=== PATIENT | female | born 1940 | race Caucasian/White ===

== ENCOUNTER 2016-07-05 16:57 | Emergency (ER) | payer OTHER ==
[~2016-07-05] VITALS: Ht 154.9 cm; Wt 79.0 kg
[~2016-07-05 16:57] MED LIST: ALLO1TAB51 PO; AMT10 PO; ASPI-435 PO; DICL1GEL28 TOP; DONE5TAB14 PO; GLC/500 PO; LSN25 PO; Lovaza PO; MULT-506 PO; NITR0.4S UT; PRLSR20 PO; SIMV40TA2 PO; SYN75 PO; TIMO0.2527 IO; TRVOPS OP
[2016-07-05 17:05] VITALS: TEMP 36.8; Ht 154.9 cm; Wt 79.0 kg
--- NOTE | 2016-07-05 17:33 | EMERGENCY ROOM VISIT NOTE ---
History Report prepared by Eugene: Solo Adkins Under the Supervision of: Dr. Cedric Alavrado M.D. First contact with patient: 17:14 Chief Complaint: FALL Stated Complaint: FALL / KNEE & NECK PAIN History of Present Illness The patient is a 76 year old female who presents to the Emergency Room via ambulance with complaints of worsening left sided neck pain due to a fall beginning 3-4 days prior to arrival. She currently rates her discomfort as an 8/ 10 in severity. The patient associates left knee pain with today's symptoms. She states she was walking her dog, and the dog started running while she was holding onto the leash. The patient notes she fell on her left knee, and her neck "snapped back" during her fall. She states she hit her head but denies losing consciousness. As per family, the patient has had previous work performed on the vertebrae of her neck and back. The patient denies back pain, abdominal pain, and hip pain. 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 Review of Systems All systems have been listed, reviewed, and are negative other than those previously mentioned. Please see Additional Medical History Sheet. Past Medical & Surgical Medical Problems: (1) Arthritis (2) Borderline glaucoma (3) Diabetes (4) GERD (gastroesophageal reflux disease) (5) Hypercholesterolemia (6) Hypertension (7) Hypothyroidism (8) Irregular heartbeat Surgical Problems: (1) S/P cervical discectomy (2) S/P cholecystectomy (3) S/P hysterectomy (4) S/P laminectomy Family History Heart disease Social History Smoking Status: Never Smoker Marital Status: Occupation Status: retired Current/Historical Medications Scheduled Allopurinol (Allopurinol), 100 MG PO DAILY Atorvastatin (Lipitor), 40 MG PO HS Donepezil Hydrochloride (Aricept), 10 MG PO HS Levothyroxine Sodium (Synthroid), 75 MCG PO QAM Lisinopril (Lisinopril), 2.5 MG PO 3XWK Memantine (Namenda), 10 MG PO BID Metformin HCl (Metformin HCl ER), 1,000 MG PO QPM Multivitamin (Multivitamin), 1 TAB PO DAILY Nitroglycerin (Nitrostat), 0.4 MG UT PRN Omeprazole (Prilosec), 1 CAP PO DAILY Sertraline (Zoloft), 25 MG PO DAILY Timolol Maleate (Ophth) (Timoptic 0.25% Oph), 1 DROP OPB QAM Scheduled PRN Ibuprofen Tab (Motrin), 600 MG PO Q6H PRN for Pain Allergies Coded Allergies: Morphine (Verified Allergy, Unknown, 07/05/16) Physical Exam Vital Signs Date Time Temp Pulse Resp B/P Pulse Ox O2 Delivery O2 Flow Rate FiO2 07/05/16 19:49 60 20 165/104 97 07/05/16 17:05 36.8 56 16 144/80 96 Room Air Physical Exam GENERAL: Patient awake, alert, oriented x 3. Patient follows commands. Patient does not appear toxic. Patient is adequately hydrated and well- nourished. SKIN: No erythema, pallor, cyanosis or rash HEENT: Normal head, pupils equal, reactive to light and accommodation. Neck: Patient has some vague left sided neck pain. Minimal to no tenderness over the spine. No step-offs palpated. LUNGS: Clear to auscultation. No wheezes, no rales, no rhonchi. HEART: No murmurs. No gallops. No rubs ABDOMEN: Soft, nontender. PELVIS: Negative to pelvic rock. Hips nontender to movement. EXTREMITIES: Left knee has slight tenderness with flexion. No break in the skin. No ecchymosis. NEUROLOGIC: Cranial nerves II-XII within normal limits. No gross motor sensory function deficits. Medical Decision & Procedures ER Provider Diagnostic Interpretation: X-ray results as stated below per my interpretation and radiologist interpretation. Other radiology results as stated below per my review and radiologist interpretation: LEFT KNEE 1 OR 2 VIEWS ROUTINE CLINICAL HISTORY: Left knee pain status post trauma COMPARISON: None DISCUSSION: No acute fractures of the tibia or femur are visualized. There are osteoarthritic changes present. There is mild irregularity involving the superior patellar pole, likely chronic. Please correlate with the patient's site of pain. IMPRESSION: 1. Mild degenerative change 2. Mild irregularity the superior patellar pole, likely chronic. Please correlate with the patient's site of pain Electronically signed by: Ady Buchanan M.D. 07/05/2016 6:[address] OF THE CERVICAL SPINE CLINICAL HISTORY: Neck pain status post trauma COMPARISON STUDY: No previous studies for comparison. CT DOSE: 218.12 mGy.cm TECHNIQUE: CT scan of the cervical spine was performed from the skull base to the thoracic inlet. Images are reviewed in the axial, sagittal, and coronal planes. IV contrast was not administered for this examination. FINDINGS: The visualized portions of the lung apices reveal no evidence of pneumothorax. The prevertebral soft tissues are normal. No fractures or traumatic subluxations are visualized. There are multilevel degenerative changes. There is C6-7 fusion. Minimal anterior subluxation of C3 on C4 is felt to be arthritic. There is a 5 mm sclerotic lesion within the C3 vertebra. IMPRESSION: 1. No acute fractures or traumatic subluxations identified 2. Degenerative and postsurgical changes Electronically signed by: Ady Buchanan M.D. 07/05/2016 5:58 PM Medications Administered Medications (Trade) Dose Ordered Sig/Tony Route Start Time Stop Time Status Last Admin Dose Admin Ibuprofen (Motrin Tab) 600 mg NOW STAT PO 07/05/16 19:07 07/05/16 19:08 DC 07/05/16 19:45 600 MG ED Course 171: Past medical records reviewed. The patient was evaluated in room A4A. A complete history and physical examination was performed. 1906: Ordered Motrin Tab 600 mg PO. 1909: Upon reevaluation, the patient appeared to have improvement of her symptoms. I discussed today's findings with her. She verbalized agreement of the treatment plan. The patient was discharged home. Medical Decision Nurses notes reviewed. Medical history sheet reviewed. Differential diagnosis includes but is not limited to: cervical spine injury, muscular strain, fracture , dislocation and subluxation of left knee, mechanical fall. X-ray of the left knee reveals questionable lucency of the distal patella. The patient does not have significant pain there and I believe this is old. CT of her cervical spine is negative for any acute fractures. The patient appears to have muscular pain on the left side of her neck. The patient be given a prescription for pain medication be taken as needed. She is to apply heat to the neck. Impression Primary Impression: Neck muscle strain Additional Impressions: Multiple contusions Fall Scribe Attestation The scribe's documentation has been prepared under my direction and personally reviewed by me in its entirety. I confirm that the note above accurately reflects all work, treatment, procedures, and medical decision making performed by me. Departure Information Dispostion Home / Self-Care (is in a home Motrin) Prescriptions Ibuprofen Tab (MOTRIN) 600 Mg Tab 600 MG PO Q6H Y for Pain, #20 TAB Prov: Cedric Alvaardo M.D. 07/05/16 Referrals Clara Garcia M.D. (PCP) Forms HOME CARE DOCUMENTATION FORM, IMPORTANT VISIT INFORMATION Patient Instructions My [facility] Additional Instructions 600 mg of ibuprofen every 6 hours as needed for pain. Apply heat intermittently to the left side of your neck over the next 3-4 days. Follow-up with your family physician within the next 10 days if symptoms have not completely resolved. Problem Qualifiers
[2016-07-05] MEDS ORDERED: LEVO25TA PO (17:44)
[2016-07-05] MEDS ORDERED: SERT25TA PO (17:44)
[2016-07-05] MEDS ORDERED: ALL100 PO (17:44)
[2016-07-05] MEDS ORDERED: ATOR-54 PO (17:44)
[2016-07-05] MEDS ORDERED: LSN5 PO (17:44)
[2016-07-05] MEDS ORDERED: PRLSR20 PO (17:44)
[2016-07-05] MEDS ORDERED: MULT-506 PO (17:45)
[2016-07-05] MEDS ORDERED: LEVO75TA PO (17:51)
[2016-07-05] MEDS ORDERED: LSN25 PO (17:51)
[2016-07-05] MEDS ORDERED: NMN10 PO (17:51)
[2016-07-05] MEDS ORDERED: TIMO0.05 OPB (17:51)
[2016-07-05] MEDS ORDERED: ATOR-24 PO (17:51)
[2016-07-05] MEDS ORDERED: DONE10TA12 PO (17:51)
[2016-07-05] MEDS ORDERED: METF-841 PO (17:51)
--- NOTE | 2016-07-05 17:59 | DIAGNOSTIC IMAGING REPORT ---
CT OF THE CERVICAL SPINE CLINICAL HISTORY: Neck pain status post trauma COMPARISON STUDY: No previous studies for comparison. CT DOSE: 218.12 mGy.cm TECHNIQUE: CT scan of the cervical spine was performed from the skull base to the thoracic inlet. Images are reviewed in the axial, sagittal, and coronal planes. IV contrast was not administered for this examination. FINDINGS: The visualized portions of the lung apices reveal no evidence of pneumothorax. The prevertebral soft tissues are normal. No fractures or traumatic subluxations are visualized. There are multilevel degenerative changes. There is C6-7 fusion. Minimal anterior subluxation of C3 on C4 is felt to be arthritic. There is a 5 mm sclerotic lesion within the C3 vertebra. IMPRESSION: 1. No acute fractures or traumatic subluxations identified 2. Degenerative and postsurgical changes Electronically signed by: Ady Buchanan M.D. 07/05/2016 5:58 PM Dictated Date/Time: 07/05/2016 5:55 PM
--- NOTE | 2016-07-05 18:43 | DIAGNOSTIC IMAGING REPORT ---
LEFT KNEE 1 OR 2 VIEWS ROUTINE CLINICAL HISTORY: Left knee pain status post trauma COMPARISON: None DISCUSSION: No acute fractures of the tibia or femur are visualized. There are osteoarthritic changes present. There is mild irregularity involving the superior patellar pole, likely chronic. Please correlate with the patient's site of pain. IMPRESSION: 1. Mild degenerative change 2. Mild irregularity the superior patellar pole, likely chronic. Please correlate with the patient's site of pain Electronically signed by: Ady Buchanan M.D. 07/05/2016 6:42 PM Dictated Date/Time: 07/05/2016 6:40 PM
[2016-07-05] MEDS ORDERED: IBUP-1427 PO (19:06)
[2016-07-05] MEDS ORDERED: IBUPROFEN 600 MG TAB PO STA (19:07)
[2016-07-05 19:49] VITALS: BP 165/104; PULSE 60; O2SAT 97
[2016-09-06] MEDS ORDERED: SUCR1TAB29 PO (15:26)
== END 2016-07-05 19:51 | disposition home or self-care (01) ==
LOC: EDBD 16:57 → C.EDA 17:01
DX: S16.1XXA Strain of muscle, fascia and tendon at neck level, initial encounter (principal); T14.8 Other injury of unspecified body region; W19.XXXA Unspecified fall, initial encounter; Y93.K1 Activity, walking an animal; M19.90 Unspecified osteoarthritis, unspecified site; E11.9 Type 2 diabetes mellitus without complications; K21.9 Gastro-esophageal reflux disease without esophagitis; E78.00 Pure hypercholesterolemia, unspecified; I10 Essential (primary) hypertension; E03.9 Hypothyroidism, unspecified; Z79.899 Other long term (current) drug therapy

== ENCOUNTER 2016-09-05 19:17 | Observation (INO) | payer OTHER ==
[~2016-09-05] VITALS: Ht 153.7 cm; Wt 73.8 kg
[~2016-09-05 19:17] MED LIST changes: +ALL100 PO; -ALLO1TAB51 PO; -AMT10 PO; -ASPI-435 PO; +ATOR-24 PO; -DICL1GEL28 TOP; +DONE10TA12 PO; -DONE5TAB14 PO; -GLC/500 PO; +IBUP-1427 PO; +LEVO75TA PO; -Lovaza PO; +METF-841 PO; +NMN10 PO; +SERT25TA PO; -SIMV40TA2 PO; -SYN75 PO; +TIMO0.05 OPB; -TIMO0.2527 IO; -TRVOPS OP
[2016-09-05 19:58] LABS: HEMATOCRIT 37.7 % (37-47); MEAN CELL VOLUME 90.8 fL (80-100); MEAN CORPUSCULAR HEMOGLOBIN 29.9 pg (25-34); MEAN CORPUSCULAR HGB CONC 32.9 g/dl (32-36); PLATELET COUNT 152 K/uL (130-400); RED BLOOD COUNT 4.15 M/uL (4.2-5.4); WHITE BLOOD COUNT 6.33 K/uL (4.8-10.8)
[2016-09-05 20:09] LABS: BUN/CREATININE RATIO 13.7 (10-20); CREATININE 1.1 mg/dl (0.60-1.20); POTASSIUM 3.9 mmol/L (3.5-5.1)
[2016-09-05] MEDS ORDERED: CETI10TA84 PO (20:10)
[2016-09-05] MEDS ORDERED: TRAV0.00 OPB (20:10)
[2016-09-05] MEDS ORDERED: NMN5 PO (20:10)
--- NOTE | 2016-09-05 20:10 | DIAGNOSTIC IMAGING REPORT ---
CHEST ONE VIEW PORTABLE HISTORY: Atypical chest pain COMPARISON: Chest 04/23/2007. FINDINGS: No focal lung consolidations to suggest pneumonia. No evidence for pulmonary edema. The heart is normal in size. No pneumothorax. A few bibasilar linear densities favor scarring or atelectasis. This is not significantly change. No pleural effusions. IMPRESSION: No significant change compared to the prior study. No acute process. Electronically signed by: Bossman Peñaloza M.D. 09/05/2016 8:08 PM Dictated Date/Time: 09/05/2016 8:06 PM
[2016-09-05 20:14] LABS: ALB/GLOB RATIO 0.9 (0.9-2); CKMB/CK RATIO 1.1 (0-3.0)
--- NOTE | 2016-09-05 20:16 | EMERGENCY ROOM VISIT NOTE ---
History Report prepared by Eugene: Oscar Joshi Under the Supervision of: Dr. Jordy Ko M.D. First contact with patient: 20:06 Chief Complaint: CHEST PAIN Stated Complaint: CHEST PAIN Nursing Triage Summary: "chest pain 0700, midsternal thru to back, and left arm. hard pain" took regular meds at home, nothing for chest pain family reports pt pale, and dizziness, diaphoretic,. poor appetite, small bowl cereal for breakfast to take meds, nothing since. drank sips water only to take pills denies n/v/d, weakness. had normal bm this am went to acute care [facility] in [facility], was low grade fever was concerned for chest pain, gave her one aspirin and something under her tongue. pain was #8, now #6 History of Present Illness The patient is a 76 year old female who presents to the Emergency Room via EMS with complaints of persistent midsternal chest pain that started around 0700 this morning. This pain radiates to her back and left arm. Associated symptoms include nausea, low grade fever, shortness of breath, dizziness, decreased appetite, and diaphoresis. The patient states that this pain was originally an 8 /10 but is now 6/10 after Nitroglycerin, Fentanyl, and Aspirin en route. Patient denies abdominal pain, vomiting, diarrhea, and weakness. Source of History: patient Onset: 0700 this morning Symptom Intensity: 8/10 to 6/10 Timing: other (Persistent ) Modifying Factors (Worsening): other (None) Modifying Factors (Relieving): other (Fentanyl, nitro, and aspirin en route ) Associated Symptoms: + SOB, + diaphoresis, + nausea, No abdominal pain, No diarrhea, No vomiting Review of Systems See HPI for pertinent positives & negatives. A total of 10 systems reviewed and were otherwise negative. Past Medical & Surgical Medical Problems: (1) Arthritis (2) Borderline glaucoma (3) Chest pain (4) Diabetes (5) GERD (gastroesophageal reflux disease) (6) Hypercholesterolemia (7) Hypertension (8) Hypothyroidism (9) Irregular heartbeat Surgical Problems: (1) S/P cervical discectomy (2) S/P cholecystectomy (3) S/P hysterectomy (4) S/P laminectomy Family History Heart disease Social History Smoking Status: Never Smoker Drug Use: none Marital Status: Occupation Status: retired Current/Historical Medications Scheduled Allopurinol (Allopurinol), 100 MG PO DAILY Atorvastatin (Lipitor), 40 MG PO HS Cetirizine (Zyrtec), 10 MG PO HS Donepezil Hydrochloride (Aricept), 10 MG PO HS Levothyroxine Sodium (Synthroid), 75 MCG PO QAM Lisinopril (Lisinopril), 2.5 MG PO 3XWK Memantine (Namenda), 5 MG PO BID Multivitamin (Multivitamin), 1 TAB PO DAILY Nitroglycerin (Nitrostat), 0.4 MG UT PRN Omeprazole (Prilosec), 20 MG PO BID Sertraline (Zoloft), 25 MG PO QAM Timolol Maleate (Ophth) (Timoptic 0.25% Oph), 1 DROP OPB QAM Travoprost (Travatan Z), 1 DROPS OPB HS Scheduled PRN Ibuprofen Tab (Motrin), 600 MG PO Q6H PRN for Pain Allergies Coded Allergies: Morphine (Verified Allergy, Unknown, 09/05/16) Niacin (Unverified Allergy, Unknown, UNKNOWN, 09/05/16) Physical Exam Vital Signs Date Time Temp Pulse Resp B/P Pulse Ox O2 Delivery O2 Flow Rate FiO2 09/05/16 21:17 51 20 97 09/05/16 21:05 52 09/05/16 21:01 97/37 09/05/16 19:53 95 Room Air 09/05/16 19:53 36.9 53 16 111/63 95 Room Air 09/05/16 19:39 36.9 53 16 111/63 96 Room Air 09/05/16 19:39 Room Air 09/05/16 19:39 95 Room Air Physical Exam GENERAL: Patient is anxious appearing, in minimal distress. HEENT: No acute trauma, normocephalic atraumatic, mucous membranes moist, no nasal congestion, no scleral icterus. NECK: No stridor, no adenopathy, no meningismus, trachea is midline. LUNGS: No dyspnea. Clear to auscultation and equal bilaterally. No wheeze, no rhonchi. HEART: Regular rate and rhythm. No murmurs, rubs, gallops appreciated. ABDOMEN: Soft, nontender, bowel sounds positive, no masses appreciated, no peritonitis. BACK: No midline tenderness, no CVA tenderness EXTREMITIES: Normal motion all extremities, no cyanosis, no edema. NEUROLOGIC: Alert and oriented, no acute motor or sensory deficits, no focal weakness, cranial nerves grossly intact. SKIN: No rash, no jaundice, no diaphoresis. Medical Decision & Procedures ER Provider Diagnostic Interpretation: X ray results are stated below per my interpretation and the radiologist's interpretation. CHEST ONE VIEW PORTABLE HISTORY: Atypical chest pain COMPARISON: Chest 04/23/2007. FINDINGS: No focal lung consolidations to suggest pneumonia. No evidence for pulmonary edema. The heart is normal in size. No pneumothorax. A few bibasilar linear densities favor scarring or atelectasis. This is not significantly change. No pleural effusions. IMPRESSION: No significant change compared to the prior study. No acute process. Electronically signed by: Bossman Peñaloza M.D. 09/05/2016 8:08 PM Dictated Date/Time: 09/05/2016 8:06 PM Laboratory Results Test 09/05/16 18:55 09/05/16 20:14 09/05/16 20:43 Total Bilirubin 0.7 mg/dl (0.2-1) Aspartate Amino Transf (AST/SGOT) 16 U/L (15-37) Alanine Aminotransferase (ALT/SGPT) 18 U/L (12-78) Alkaline Phosphatase 79 U/L (45-117) Total Creatine Kinase 113 U/L (26-192) Total Protein 7.4 gm/dl (6.4-8.2) Albumin 3.5 gm/dl (3.4-5.0) Globulin 3.9 gm/dl (2.5-4.0) Albumin/Globulin Ratio 0.9 (0.9-2) Bedside Troponin I 0.070 ng/ml (0-0.045) Prothrombin Time 11.2 SECONDS (9.0-12.0) Prothromb Time International Ratio 1.0 (0.9-1.1) Activated Partial Thromboplast Time 24.3 SECONDS (21.0-31.0) Partial Thromboplastin Ratio 0.9 Laboratory results as reviewed by me. Medications Administered Medications (Trade) Dose Ordered Sig/Tony Route Start Time Stop Time Status Last Admin Dose Admin Sodium Chloride (Nss 1000ml) 1,000 ml @ 50 mls/hr Q20H IV 09/05/16 21:17 10/05/16 21:16 09/06/16 00:08 50 MLS/HR ECG Indication: chest pain Rate (beats per minute): 53 Rhythm: sinus bradycardia Findings: no acute ischemic change, no ectopy ED Course 2004: The patient was evaluated in room C10. A complete history and physical exam was performed. 2034: Upon reevaluation, the patient is feeling alright. She is agreeable to stay. 2108: I discussed the patient's case with Dr. Hidalgo ([facility]). She will evaluate the patient for further management and care. Medical Decision Differential: Cardiac Ischemia (STEMI, NSTEMI, Unstable Angina, etc), Aortic Dissection, Arrhythmia, Pulmonary Embolism, Pneumonia, Pneumothorax, MSK, Infectious, Pericarditis/Myocarditis, Esophageal Rupture, Gastrointestinal, amongst other pathologies entertained. 76 yr old female arrives with substernal chest pain resolved prior to arrival with ASA/SLNTG by EMS. Patient feeling better now though notes fatigue and family notes she looks pale. Vitals OK. HgB ok and no bleeding per patient. POC trop is elevated slightly above normal. EKG without acute ischemia. Not clear this is ACS but with elevated Trop and Chest pain symptoms she will clearly need to come in for further work-up and evaluation. Patient and family comfortable with this plan. I do not feel this represents disection, PE and no clear evidence infectious etiology. Abdomen soft/non-tender. Consults Time Called: 2099 Consulting Physician: Dr. Hidalgo ([facility]) Returned Call: 2108 I discussed the patient's case with Dr. Hidalgo ([facility]). She will evaluate the patient for further management and care. Impression Primary Impression: Elevated troponin Additional Impression: Substernal precordial chest pain Scribe Attestation The scribe's documentation has been prepared under my direction and personally reviewed by me in its entirety. I confirm that the note above accurately reflects all work, treatment, procedures, and medical decision making performed by me. Departure Information Dispostion Being Evaluated By Hospitalist Clara Mercado M.D. (PCP) Patient Instructions My [facility] Problem Qualifiers
[2016-09-05 20:58] LABS: PARTIAL THROMBOPLASTIN RATIO 0.9; PROTHROMBIN TIME (PATIENT) 11.2 SECONDS (9.0-12.0)
[2016-09-05] MEDS ORDERED: SODIUM CHLORIDE 0.9% 1000ML 1,000 ML IV SCH (21:17)
[2016-09-05] MEDS ORDERED: ONDANSETRON INJ 2 MG/ML 2 ML VIAL IV PRN (21:30)
[2016-09-05] MEDS ORDERED: ACETAMINOPHEN 325 MG TAB PO PRN (21:30)
[2016-09-05] MEDS ORDERED: IBUPROFEN 600 MG TAB PO PRN (21:30)
[2016-09-05] MEDS ORDERED: NITROGLYCERIN 0.4 MG SL PER TAB CHARGE SL PRN (21:30)
[2016-09-05] MEDS ORDERED: GLUCAGON FOR INJ 1 MG VIAL SQ PRN (21:45)
[2016-09-05] MEDS ORDERED: GLUCOSE 40% GEL 15 GM TUBE PO PRN (21:45)
[2016-09-05] MEDS ORDERED: PHARMACY GLYCEMIC MGMT CONSULT PRN (21:45)
[2016-09-05] MEDS ORDERED: GLUCOSE 10 TABS/TUBE PO PRN (21:45)
[2016-09-05] MEDS ORDERED: DEXTROSE 50% 50 ML SYR IV PRN (21:45)
[2016-09-05] MEDS ORDERED: FENTANYL CITRATE INJ 50 MCG/1 ML 2 ML VIAL IV PRN (22:00)
--- NOTE | 2016-09-05 22:13 | History and Physical ---
History & Physical Date & Time of Service: Sep 05, 2016 at 21:31 Chief Complaint: Chest Pain Primary Care Physician: Clara Garcia M.D. History of Present Illness Source: patient, family Patient is a 76 yr old female with PMH of Alzheimer's dementia, DM II, CKD III, GERD, GOUT, Hypothyroidism, HTN, HLP presents to ED for evaluation of chest pain. Patient has dementia and is poor historian. Most of the history is obtained from patients family. Patient reports chest pain started at around 7Am this morning and she woke up with chest pain, retrosternal in location, constant , 7/10 intensity, radiates to back and left arm. Associated with nausea, dizziness, diaphoresis, low grade fever. Denies any history of SOB, palpitations , vomiting, abd pain, change in bowel/bladder habits, cough , wheezing, recent infection. Also denies similar chest pain in the past. En route to ED, patient received Nitroglycerin, Fentanyl, and Aspirin which slightly relieved her chest pain. Patient had cardiac cath in 2013 which showed no obstructive CAD. EKG shows sinus bradycardia and first set of Troponin mildly elevated at 0.07. Could not obtain any other relevant history. Past Medical/Surgical History Medical Problems: (1) Arthritis Status: Chronic (2) Borderline glaucoma Status: Chronic (3) Diabetes Status: Chronic (4) GERD (gastroesophageal reflux disease) Status: Chronic (5) Hypercholesterolemia Status: Chronic (6) Hypertension Status: Chronic (7) Hypothyroidism Status: Chronic (8) Irregular heartbeat Status: Chronic Surgical Problems: (1) S/P cervical discectomy Status: Resolved (2) S/P cholecystectomy Status: Resolved (3) S/P hysterectomy Status: Resolved (4) S/P laminectomy Status: Resolved Family History Heart disease Mother: in her 50s from heart disease Social History Smoking Status: Never Smoker Alcohol Use: none Drug Use: none Marital Status: Occupational Status: retired Immunizations History of Influenza Vaccine: No History of Tetanus Vaccine?: Yes History of Pneumococcal: Yes Pneumococcal Date: Apr 26, 2007 History of Hepatitis B Vaccine: Yes Allergies Coded Allergies: Morphine (Verified Allergy, Unknown, 09/05/16) Niacin (Unverified Allergy, Unknown, UNKNOWN, 09/05/16) Home Medications Scheduled Allopurinol (Allopurinol), 100 MG PO DAILY Atorvastatin (Lipitor), 40 MG PO HS Cetirizine (Zyrtec), 10 MG PO HS Donepezil Hydrochloride (Aricept), 10 MG PO HS Levothyroxine Sodium (Synthroid), 75 MCG PO QAM Lisinopril (Lisinopril), 2.5 MG PO 3XWK Memantine (Namenda), 5 MG PO BID Multivitamin (Multivitamin), 1 TAB PO DAILY Nitroglycerin (Nitrostat), 0.4 MG UT PRN Omeprazole (Prilosec), 20 MG PO BID Sertraline (Zoloft), 25 MG PO QAM Timolol Maleate (Ophth) (Timoptic 0.25% Oph), 1 DROP OPB QAM Travoprost (Travatan Z), 1 DROPS OPB HS Scheduled PRN Ibuprofen Tab (Motrin), 600 MG PO Q6H PRN for Pain Review of Systems See HPI for pertinent positives & negatives. A total of 10 systems reviewed and were otherwise negative. Physical Exam Vital Signs Date Time Temp Pulse Resp B/P Pulse Ox O2 Delivery O2 Flow Rate FiO2 09/05/16 21:05 52 09/05/16 19:53 95 Room Air 09/05/16 19:53 36.9 53 16 111/63 95 Room Air 09/05/16 19:39 36.9 53 16 111/63 96 Room Air 09/05/16 19:39 Room Air 09/05/16 19:39 95 Room Air General Appearance: WD/WN, no apparent distress Head: normocephalic, atraumatic Eyes: normal inspection, PERRL, EOMI, sclerae normal ENT: normal ENT inspection, hearing grossly normal Neck: supple, trachea midline Respiratory/Chest: chest non-tender, lungs clear, normal breath sounds, no respiratory distress, no accessory muscle use Cardiovascular: regular rate, rhythm, no murmur, + bradycardia, + pertinent finding (Trace pedal edema) Abdomen/GI: normal bowel sounds, non tender, soft Back: normal inspection Extremities/Musculoskelatal: normal inspection, no calf tenderness, + pertinent finding (Trace pedal edema) Neurologic/Psych: junior bookkeeper II-XII nml as tested, no motor/sensory deficits, alert, normal mood/affect, oriented x 3, + pertinent finding (Dementia) Diagnostics Laboratory Results Results Past 24 Hours Test 09/05/16 18:55 09/05/16 20:14 09/05/16 20:43 Range/Units White Blood Count 6.33 4.8-10.8 K/uL Red Blood Count 4.15 4.2-5.4 M/uL Hemoglobin 12.4 12.0-16.0 g/dL Hematocrit 37.7 37-47 % Mean Corpuscular Volume 90.8 80-100 fL Mean Corpuscular Hemoglobin 29.9 25-34 pg Mean Corpuscular Hemoglobin Concent 32.9 32-36 g/dl RDW Standard Deviation 48.0 36.4-46.3 fL RDW Coefficient of Variation 14.4 11.5-14.5 % Platelet Count 152 130-400 K/uL Mean Platelet Volume 11.0 7.4-10.4 fL Sodium Level 141 136-145 mmol/L Potassium Level 3.9 3.5-5.1 mmol/L Chloride Level 108 98-107 mmol/L Carbon Dioxide Level 25 21-32 mmol/L Anion Gap 8.0 3-11 mmol/L Blood Urea Nitrogen 15 7-18 mg/dl Creatinine 1.10 0.60-1.20 mg/dl Est Creatinine Clear Calc Drug Dose 41.8 ml/min Estimated GFR () 56.9 Estimated GFR (Non- 49.1 BUN/Creatinine Ratio 13.7 10-20 Random Glucose 135 70-99 mg/dl Calcium Level 9.0 8.5-10.1 mg/dl Total Bilirubin 0.7 0.2-1 mg/dl Aspartate Amino Transf (AST/SGOT) 16 15-37 U/L Alanine Aminotransferase (ALT/SGPT) 18 12-78 U/L Alkaline Phosphatase 79 45-117 U/L Total Creatine Kinase 113 26-192 U/L Creatine Kinase MB 1.2 0.5-3.6 ng/ml Creatine Kinase MB Ratio 1.1 0-3.0 Total Protein 7.4 6.4-8.2 gm/dl Albumin 3.5 3.4-5.0 gm/dl Globulin 3.9 2.5-4.0 gm/dl Albumin/Globulin Ratio 0.9 0.9-2 Bedside Troponin I 0.070 0-0.045 ng/ml Prothrombin Time 11.2 9.0-12.0 SECONDS Prothromb Time International Ratio 1.0 0.9-1.1 Activated Partial Thromboplast Time 24.3 21.0-31.0 SECONDS Partial Thromboplastin Ratio 0.9 Diagnostic Radiology CXR: No significant change compared to the prior study. No acute process EKG EKG:Sinus bradycardia, no acute signs of ischemia Impression Assessment and Plan Chest Pain: R/O ACS Risk factors: H/O HTN, HLP, DM II, positive family history Last cardiac cath in 2013:no obstructive CAD Initial troponin:0.07 EKG shows: Sinus bradycardia, no signs of ischemia CXR: Unremarkable Check ECHO Trend serial cardiac enzymes, repeat EKG, fasting lipid panel in AM Start Aspirin, continue statins Oxygen PRN Possible Stress test in AM NPO after midnight Cardiology consulted DM II: Hold Metformin Check A1c in AM ISS, Accu checks, Diabetic diet Hypothyroidism: Continue levothyroxine Check TSH Gout: Continue allopurinol GERD: Continue PPI HTN: Stable Continue home meds CKD III: Cr levels stable Monitor renal function DVT Px: Heparin SQ Code status: Full code Disposition: Monitor in Tele VTE Prophylaxis VTE Risk Assessment Done? Y/N: Yes Risk Level: Low
[2016-09-05] MEDS ORDERED: IV FLUIDS COMPLETED PRN (22:15)
[2016-09-05 22:40] VITALS: BP 145/68; PULSE 53; TEMP 36.9; O2SAT 98; Ht 153.7 cm; Wt 73.8 kg
[2016-09-06] MEDS ORDERED: ACETAMINOPHEN/CODEINE 300/30MG TAB PO ONE (00:45)
[2016-09-06] MEDS ORDERED: NURSING VERBAL MED ORDER ONE (00:45)
[2016-09-06] MEDS: HEPARIN SOD 5000 UNIT/0.5 ML CARP SQ SCH ×3 (01:07→14:00)
[2016-09-06 04:31] VITALS: BP 100/61; PULSE 51; TEMP 36.8; O2SAT 91
[2016-09-06 05:14] LABS: BLOOD UREA NITROGEN 14 mg/dl (7-18); BUN/CREATININE RATIO 12.6 (10-20); CALCIUM 8.2 mg/dl (8.5-10.1); CARBON DIOXIDE 29 mmol/L (21-32); CHLORIDE 110 mmol/L (98-107); GLUCOSE 121 mg/dl (70-99); POTASSIUM 3.9 mmol/L (3.5-5.1); SODIUM 143 mmol/L (136-145)
[2016-09-06 05:25] LABS: CHOLESTEROL 145 mg/dl (0-200); CHOLESTEROL/HDL RATIO 3.5; HDL CHOLESTEROL 41 mg/dl; LDL CHOLESTEROL CALCULATED 66 mg/dl; THYROID STIMULATING HORMONE 0.792 uIu/ml (0.300-4.500); TRIGLYCERIDES 192 mg/dl (0-150); VERY LOW DENSITY LIPOPROT CALC 38 mg/dl
[2016-09-06] MEDS ORDERED: LEVOTHYROXINE 75 MCG TAB PO SCH (06:30)
[2016-09-06 06:48] LABS: BASO % 0.5 %; BASO ABS # 0.03 K/uL (0-0.2); COMPLETE YES; HEMATOCRIT 33.5 % (37-47); LYMPH % 38.4 %; LYMPH ABS # 2.31 K/uL (1.2-3.4); MEAN CORPUSCULAR HEMOGLOBIN 29.7 pg (25-34); MEAN CORPUSCULAR HGB CONC 32.2 g/dl (32-36); MEAN PLATELET VOLUME 10.9 fL (7.4-10.4); MONO % 7.7 %; NEUT % 51.4 %; PLATELET COUNT 142 K/uL (130-400); RED BLOOD COUNT 3.64 M/uL (4.2-5.4); WHITE BLOOD COUNT 6.01 K/uL (4.8-10.8)
[2016-09-06 07:13] VITALS: BP 114/66; PULSE 51; TEMP 36.8; O2SAT 94
[2016-09-06 07:38] LABS: ESTIMATED AVERAGE GLUCOSE 169 mg/dl; HA1C FLAG Normal (Normal)
[2016-09-06] MEDS ORDERED: PANTOprazole SOD 40 MG TAB PO SCH (09:00)
[2016-09-06] MEDS ORDERED: MEMANTINE 5 MG TAB PO SCH (09:00)
[2016-09-06] MEDS ORDERED: ASPIRIN 81 MG ECTAB PO SCH (09:00)
[2016-09-06] MEDS ORDERED: ALLOPURINOL 100 MG TAB PO SCH (09:00)
[2016-09-06] MEDS ORDERED: TIMOLOL MALEATE 0.25% OP SOLN 5 ML BTL OPB SCH (09:00)
[2016-09-06] MEDS ORDERED: SERTRALINE HCL 50 MG TAB PO SCH (09:00)
[2016-09-06] MEDS ORDERED: LISINOPRIL 2.5 MG TAB PO SCH (09:00)
[2016-09-06] MEDS: INSULIN ASPART 100 UNITS/ML 3 ML PEN SC SCH ×2 (09:08→11:00)
--- NOTE | 2016-09-06 10:35 | ECHOCARDIOGRAM REPORT ---
*NOTICE TO RECEIVING REPUBLICAN AGENCY This information is strictly Confidential and protected under [place] law. [place] law prohibits you from making any further disclosure of this information unless further disclosure is expressly permitted by the written consent of the person to whom it pertains or is authorized by law. A general authorization for the release of medical or other information is not sufficient for this purpose. Hospital accepts no responsibility if the information is made available to any other person, INCLUDING THE PATIENT. Interpretation Summary * Name: MARCE DICKERSON Study Date: 09/06/2016 07:36 AM BP: 114/66 mmHg * Patient Location: [facility]\S\N287\S\2 HR: 51 * : 1940 (M/d/yyyy) Gender: Female Height: 60 in * Age: 76 yrs Ethnicity: CA Weight: 172 lb * Ordering Physician: Marty eMdina * Performed By: Anisa Harris * * Reason For Study: Chest pain * BSA: 1.8 m2 * -- Conclusions -- * The left ventricle is normal in size. * There is borderline concentric left ventricular hypertrophy. * Left ventricular systolic function is normal. * Ejection Fraction = 60-65%. * The right ventricular systolic function is normal. * The left atrial size is normal. * Right atrial size is normal. * No significant valvular pathology. Procedure Details * A complete two-dimensional transthoracic echocardiogram was performed (2D, M-mode, Doppler and color flow Doppler). Left Ventricle * The left ventricle is normal in size. * There is borderline concentric left ventricular hypertrophy. * Ejection Fraction = 60-65%. * Left ventricular systolic function is normal. * The left ventricular wall motion is normal. Right Ventricle * The right ventricle is normal size. * The right ventricular systolic function is normal. Atria * The left atrial size is normal. * Right atrial size is normal. * The interatrial septum is intact with no evidence for an atrial septal defect. Mitral Valve * The mitral valve anatomy is normal. * Significant mitral regurgitation is absent. Tricuspid Valve * The tricuspid valve is not well visualized, but is grossly normal. * Significant tricuspid regurgitation is absent. Aortic Valve * The aortic valve is tricuspid. The leaflet thickness if normal. There is no aortic stenosis, and no significant insufficiency. * No hemodynamically significant valvular aortic stenosis. * There is no significant aortic regurgitation. Pulmonic Valve * The pulmonic valve is not well visualized. * There is no significant pulmonary regurgitation. Great Vessels * The aortic root and proximal ascending aorta are normal sized. Pericardium/Pleural * There is no pericardial effusion. Left Ventricular Diastolic Function * Grade I diastolic dysfunction, (abnormal relaxation pattern). MMode 2D Measurements and Calculations IVSd 1.1 cm IVSs 1.8 cm LVIDd 4.1 cm LVIDs 2.7 cm LVPWd 1.1 cm LVPWs 1.4 cm IVS/LVPW 1.0 FS 32.3 % EDV(Teich) 72.2 ml ESV(Teich) 28.1 ml EF(Teich) 61.1 % EDV(cubed) 66.5 ml ESV(cubed) 20.7 ml EF(cubed) 69.0 % % IVS thick 62.4 % % LVPW thick 32.0 % LV mass(C)d 143.3 grams LV mass(C)dI 81.8 grams/m\S\2 LV mass(C)s 154.6 grams LV mass(C)sI 88.3 grams/m\S\2 CO(Teich) 2.4 l/min CI(Teich) 1.4 l/min/m\S\2 SV(Teich) 44.1 ml SI(Teich) 25.2 ml/m\S\2 CO(cubed) 2.5 l/min CI(cubed) 1.4 l/min/m\S\2 SV(cubed) 45.9 ml SI(cubed) 26.2 ml/m\S\2 ACS 1.3 cm LA dimension 3.5 cm asc Aorta Diam 3.7 cm LVOT diam 1.9 cm LVOT area 3.0 cm\S\2 LVAd ap4 21.9 cm\S\2 LVLd ap4 6.6 cm EDV(MOD-sp4) 60.8 ml LVAs ap4 11.6 cm\S\2 LVLs ap4 5.0 cm ESV(MOD-sp4) 23.1 ml EF(MOD-sp4) 62.0 % LVAd ap2 21.9 cm\S\2 LVLd ap2 6.9 cm EDV(MOD-sp2) 58.2 ml LVAs ap2 11.6 cm\S\2 LVLs ap2 5.5 cm ESV(MOD-sp2) 21.5 ml EF(MOD-sp2) 63.1 % CO(MOD-sp4) 2.0 l/min CI(MOD-sp4) 1.2 l/min/m\S\2 SV(MOD-sp4) 37.7 ml SI(MOD-sp4) 21.5 ml/m\S\2 CO(MOD-sp2) 2.0 l/min CI(MOD-sp2) 1.1 l/min/m\S\2 SV(MOD-sp2) 36.7 ml SI(MOD-sp2) 21.0 ml/m\S\2 Doppler Measurements and Calculations MV E max radha 61.3 cm/sec MV A max radha 78.8 cm/sec MV E/A 0.78 MV dec time 0.32 sec Ao V2 max 158.0 cm/sec Ao max PG 10.0 mmHg Ao max PG (full) 7.1 mmHg CECILIA(V,A) 1.6 cm\S\2 CECILIA(V,D) 1.6 cm\S\2 LV V1 max PG 2.8 mmHg LV V1 max 84.4 cm/sec PA V2 max 76.6 cm/sec PA max PG 2.3 mmHg PI end-d radha 115.4 cm/sec
[2016-09-06 11:34] VITALS: BP 118/69; PULSE 53; TEMP 36.6; O2SAT 92
--- NOTE | 2016-09-06 11:37 | Cardiology Consultation ---
Cardiology Consultation Date of Consultation: Sep 06, 2016 Requesting Physician: Dr. Medina Attending Fire Supervisor: Dr. Chaney (Rolanda Mathews PA-C) History of Present Illness Patient is a 76 year old female who has a past medical history of atypical chest pain, leading to cardiac catheterization in 2013 with mild luminal/non obstructive CAD noted. She has not followed with a make up arranger since that time. PCP is Vivian Garcia in [place]. Other history includes hypertension, dm type II, gout, hypothyroidism. Chart history of dementia and on Namenda and Aricept, but currently patient able to answer all questions appropriately. She recalls having sudden onset chest pain starting yesterday morning, lasted most of the day and was referred to ER for evaluation. Noted associated shortness of breath, diaphoresis and nausea with her symptoms. She had radiation to her back and left shoulder/arm. No change in symptoms at rest or with exertion. She was concerned she was having a "heart attack". Symptoms mildly improved since admission. POC troponin resulted at .07. Repeat/serial enzymes were negative. EKGs have been non ischemic and unremarkable other than sinus bradycardia. She denies symptoms of dizziness, syncope or near syncope. She is on beta carla eye drops for glaucoma but not oral medications. At time of consult, patient is tearful as to her current condition. She continues to have substernal/epigastric pain. No SOB currently. NO radiation currently. Symptoms minimally improved from admission. (Rolanda Mathews PA-C) History Past Medical/Surgical History: (1) Arthritis (2) Borderline glaucoma (3) Diabetes (4) GERD (gastroesophageal reflux disease) (5) Hypercholesterolemia (6) Hypertension (7) Hypothyroidism Surgical Problems: (1) S/P cervical discectomy (2) S/P cholecystectomy (3) S/P hysterectomy (4) S/P laminectomy Social History: . Lives with and son. No history of alcohol or tobacco abuse. Family History: Mother age 50's of [place]. (Rolanda Mathews PA-C) Review Of Systems General: The patient denies weight change, night sweats, fever, chills. Head: The patient denies headache and prior head trauma. Cardiovascular: The patient denies chest pain or chest discomfort, dyspnea on exertion, palpitations, PND, orthopnea, edema, spontaneous shortness of breath, syncope and near syncope. Pulmonary: The patient denies cough, wheeze, pleurisy, hemoptysis, sputum, and excessive snoring. Gastrointestinal: The patient denies nausea, vomiting, diarrhea, constipation, bloating, hematemesis, hematochezia, and abdominal pain. Skin: The patient denies diaphoresis and rash. Musculoskeletal: The patient denies joint pain, joint swelling, myalgia, back pain, neck pain and prior injuries. Neurological: The patient denies prior stroke and seizures (Rolanda Mathews PA-C) Allergies Coded Allergies: Morphine (Verified Allergy, Unknown, 09/05/16) Niacin (Unverified Allergy, Unknown, UNKNOWN, 09/05/16) Medications Reported Home Medications Medications Dose Route/Sig Max Daily Dose Days Date Category Dose Instructions Travatan Z (Travoprost) 0.004 % Bhavesh 1 Drops OPB HS 09/05/16 Reported Zyrtec (Cetirizine HCl) 10 Mg Tab 10 Mg PO HS 09/05/16 Reported Namenda (Memantine) 5 Mg Tab 5 Mg PO BID 09/05/16 Reported Motrin (Ibuprofen) 600 Mg Tab 600 Mg PO Q6H PRN 07/05/16 Rx Lisinopril 2.5 Mg Tab 2.5 Mg PO 3XWK 07/05/16 Reported MON, WED, FRI Timoptic 0.25% Oph (Timolol Maleate (Ophth)) 0.25 % Julee 1 Drop OPB QAM 07/05/16 Reported Aricept (Donepezil Hydrochloride) 10 Mg Tab 10 Mg PO HS 07/05/16 Reported Synthroid (Levothyroxine Sodium) 75 Mcg Tab 75 Mcg PO QAM 07/05/16 Reported Lipitor (Atorvastatin Calcium) 40 Mg Tab 40 Mg PO HS 07/05/16 Reported Multivitamin (Multivitamins) Unknown Strength Tab 1 Tab PO DAILY 07/05/16 Reported Zoloft (Sertraline HCl) 25 Mg Tab 25 Mg PO QAM 07/05/16 Reported Prilosec (Omeprazole) 20 Mg Capcr 20 Mg PO BID 07/05/16 Reported Allopurinol 100 Mg Tab 100 Mg PO DAILY 07/05/16 Reported Nitrostat (Nitroglycerin) 0.4 Mg Sub 0.4 Mg UT PRN 08/04/13 Reported (Rolanda Mathews PA-C) Physical Exam Vital Signs (Last 8hrs): Last 8 Hrs Date Time Temp Pulse Resp B/P Pulse Ox O2 Delivery O2 Flow Rate FiO2 09/06/16 08:00 Room Air 09/06/16 07:13 36.8 51 16 114/66 94 Room Air 09/06/16 04:31 36.8 51 16 100/61 91 Room Air 09/06/16 04:00 Room Air General Appearance: Alert and Oriented x3. Mild distress. Tearful. Head: Normocephalic Atraumatic. Eyes: PERRLA, EOMI, conjunctiva and sclera clear Neck: Supple. No carotid bruits noted. No JVD. No HJD. Respiratory: Breath sounds clear to auscultation bilaterally. No w/r/r. Cardiovascular: Reg rate and rhythm. S1 and S2 noted. No murmurs, rubs, gallops. PMI non displace. Abdomen: Normal bowel sounds, soft nontender. no abdominal bruits. Extremities: No edema, no clubbing or cyanosis. distal pulses 2/4 bilaterally. Neuro: No focal deficits. Psychiatric: Normal affect. (Rolanda Mathews PA-C) Data Last 24 Hours Test 09/05/16 18:55 09/05/16 20:14 09/05/16 20:43 09/05/16 23:29 White Blood Count 6.33 K/uL Red Blood Count 4.15 M/uL Hemoglobin 12.4 g/dL Hematocrit 37.7 % Mean Corpuscular Volume 90.8 fL Mean Corpuscular Hemoglobin 29.9 pg Mean Corpuscular Hemoglobin Concent 32.9 g/dl RDW Standard Deviation 48.0 fL RDW Coefficient of Variation 14.4 % Platelet Count 152 K/uL Mean Platelet Volume 11.0 fL Sodium Level 141 mmol/L Potassium Level 3.9 mmol/L Chloride Level 108 mmol/L Carbon Dioxide Level 25 mmol/L Anion Gap 8.0 mmol/L Blood Urea Nitrogen 15 mg/dl Creatinine 1.10 mg/dl Est Creatinine Clear Calc Drug Dose 41.8 ml/min Estimated GFR () 56.9 Estimated GFR (Non- 49.1 BUN/Creatinine Ratio 13.7 Random Glucose 135 mg/dl Calcium Level 9.0 mg/dl Total Bilirubin 0.7 mg/dl Aspartate Amino Transf (AST/SGOT) 16 U/L Alanine Aminotransferase (ALT/SGPT) 18 U/L Alkaline Phosphatase 79 U/L Total Creatine Kinase 113 U/L Creatine Kinase MB 1.2 ng/ml 1.0 ng/ml Creatine Kinase MB Ratio 1.1 Total Protein 7.4 gm/dl Albumin 3.5 gm/dl Globulin 3.9 gm/dl Albumin/Globulin Ratio 0.9 Bedside Troponin I 0.070 ng/ml Prothrombin Time 11.2 SECONDS Prothromb Time International Ratio 1.0 Activated Partial Thromboplast Time 24.3 SECONDS Partial Thromboplastin Ratio 0.9 Troponin I < 0.015 ng/ml Test 09/06/16 04:00 09/06/16 04:44 09/06/16 07:30 09/06/16 08:00 White Blood Count 6.01 K/uL Red Blood Count 3.64 M/uL Hemoglobin 10.8 g/dL Hematocrit 33.5 % Mean Corpuscular Volume 92.0 fL Mean Corpuscular Hemoglobin 29.7 pg Mean Corpuscular Hemoglobin Concent 32.2 g/dl Platelet Count 142 K/uL Mean Platelet Volume 10.9 fL Neutrophils (%) (Auto) 51.4 % Lymphocytes (%) (Auto) 38.4 % Monocytes (%) (Auto) 7.7 % Eosinophils (%) (Auto) 2.0 % Basophils (%) (Auto) 0.5 % Neutrophils # (Auto) 3.09 K/uL Lymphocytes # (Auto) 2.31 K/uL Monocytes # (Auto) 0.46 K/uL Eosinophils # (Auto) 0.12 K/uL Basophils # (Auto) 0.03 K/uL RDW Standard Deviation 49.2 fL RDW Coefficient of Variation 14.4 % Immature Granulocyte % (Auto) 0.0 % Immature Granulocyte # (Auto) 0.00 K/uL Nucleated RBC Absolute Count (auto) 0.00 K/uL Nucleated Red Blood Cells % 0.0 % Sodium Level 143 mmol/L Potassium Level 3.9 mmol/L Chloride Level 110 mmol/L Carbon Dioxide Level 29 mmol/L Anion Gap 4.0 mmol/L Blood Urea Nitrogen 14 mg/dl Creatinine 1.10 mg/dl Est Creatinine Clear Calc Drug Dose 38.8 ml/min Estimated GFR () 56.9 Estimated GFR (Non- 49.1 BUN/Creatinine Ratio 12.6 Random Glucose 121 mg/dl Estimated Average Glucose 169 mg/dl Hemoglobin A1c 7.5 % Calcium Level 8.2 mg/dl Magnesium Level 2.0 mg/dl Creatine Kinase MB 1.1 ng/ml Troponin I < 0.015 ng/ml Triglycerides Level 192 mg/dl Cholesterol Level 145 mg/dl HDL Cholesterol 41 mg/dl LDL Cholesterol, Calculated 66 mg/dl VLDL Cholesterol, Calculated 38 mg/dl Cholesterol/HDL Ratio 3.5 Thyroid Stimulating Hormone (TSH) 0.792 uIu/ml Creatine Kinase MB Ratio Bedside Glucose 105 mg/dl Test 09/06/16 08:33 Creatine Kinase MB 1.4 ng/ml Troponin I < 0.015 ng/ml Imaging: Echocardiogram reviewed, per report: * -- Conclusions -- * The left ventricle is normal in size. * There is borderline concentric left ventricular hypertrophy. * Left ventricular systolic function is normal. * Ejection Fraction = 60-65%. * The right ventricular systolic function is normal. * The left atrial size is normal. * Right atrial size is normal. * No significant valvular pathology. Chest xray: IMPRESSION: No significant change compared to the prior study. No acute process. EKG: On admission 09/05: Sinus bradycardia Otherwise normal ECG When compared with ECG of 23-APR-2007 11:51, QT has shortened Repeat EKG on 09/06 around midnight: Sinus bradycardia Nonspecific T wave abnormality Abnormal ECG When compared with ECG of 05-SEP-2016 19:27, (unconfirmed) No significant change was found Repeat EKG this AM, 09/06: Sinus bradycardia with 1st degree A-V block Nonspecific T wave abnormality Abnormal ECG When compared with ECG of 06-SEP-2016 00:21, (unconfirmed) No significant change Telemetry reviewed: NSR and Sinus bradycardia in 40's during times of sleep, 50 's when awake. No significant pauses or high degree AV block. (Rolanda Mathews, PASauloC) Assessment & Plan 1. Atypical chest pain -Initial troponin of .07, repeat enzymes unremarkable -echo with normal LVEF, no wall motion abnormalities -EKG with sinus bradycardia without ischemic changes -given ongoing symptoms since admission, recommend dobutamine stress echo to r/o ischemia -If dobutamine is negative, consider GI etiology 2. History of mild non obstructive CAD per cath in 2013 at [facility] -continue home medications including ASA, statin, lisinopril -Not on beta carla (oral) due to bradycardia 3. Hypertension - controlled 4. Sinus bradycardia on telemetry - patient is asymptomatic. -on Timolol eye drops Case to be discussed with Dr. Chaney. Further recommendations pending stress test results. (Rolanda Mathews PA-C) CARDIOLOGY ATTENDING ADDENDUM: The patient was seen and personally examined. Agree with Rolanda Mathews PA-C's findings and plans as documented above. We will try a dobutamine stress. Low pulse rate could be a problem due to eye drops. (Cezar Chaney, DO)
--- NOTE | 2016-09-06 12:58 | Pharmacy Progress Note ---
Glycemic Control Intl Consult Date of Service Sep 06, 2016. Scope Glycemic Pharmacist consulted by Dr. Medina on 09/05/16 for glycemic control and to write orders per [facility] inpatient glycemic control protocol Objective Weight (Kilograms): 73.800 Accuchecks BSG (last 24hrs): Test 09/05/16 18:55 09/06/16 04:00 09/06/16 07:30 09/06/16 11:48 Random Glucose 135 mg/dl (70-99) 121 mg/dl (70-99) Bedside Glucose 105 mg/dl (70-90) 114 mg/dl (70-90) Laboratory Data (last 24hrs) Test 09/05/16 18:55 09/06/16 04:00 Anion Gap 8.0 mmol/L 4.0 mmol/L BUN/Creatinine Ratio 13.7 12.6 Blood Urea Nitrogen 15 mg/dl 14 mg/dl Creatinine 1.10 mg/dl 1.10 mg/dl Potassium Level 3.9 mmol/L 3.9 mmol/L Sodium Level 141 mmol/L 143 mmol/L White Blood Count 6.33 K/uL 6.01 K/uL Hemoglobin A1c 7.5 % Red Blood Count 3.64 M/uL Hemoglobin 10.8 g/dL Hematocrit 33.5 % Mean Corpuscular Volume 92.0 fL Mean Corpuscular Hemoglobin 29.7 pg Mean Corpuscular Hemoglobin Concent 32.2 g/dl Platelet Count 142 K/uL Mean Platelet Volume 10.9 fL Neutrophils (%) (Auto) 51.4 % Lymphocytes (%) (Auto) 38.4 % Monocytes (%) (Auto) 7.7 % Eosinophils (%) (Auto) 2.0 % Basophils (%) (Auto) 0.5 % Neutrophils # (Auto) 3.09 K/uL Lymphocytes # (Auto) 2.31 K/uL Monocytes # (Auto) 0.46 K/uL Eosinophils # (Auto) 0.12 K/uL Basophils # (Auto) 0.03 K/uL HbA1c Test 09/06/16 04:00 Hemoglobin A1c 7.5 % (4.5-5.6) H Recent Pertinent Medications Outpatient Anti-diabetic Regimen: * Metformin ? * A1c = 7.5 % from today, 09/06/16 Risk Factors for Insulin Resistance: * IVF: NS at 50 ml/hr * Diet: NPO Assessment & Plan ASSESSMENT: * ADA & AACE recommend a goal blood sugar range 140-180 mg/dl for the majority of critically ill & non-critically ill patients. However, more stringent targets may be selected in individual cases. * 76 yo female admitted with CP. * A1c today reveals adequately controlled BSGs as an outpatient. * Will continue Novolog SS as per provider order. No basal insulin needed. PLAN FOR INPATIENT GLYCEMIC CONTROL: * No Lantus * Novolog ACHS * Continue correction factor of 55 mg/dl/unit * Continue carb ratio of 1 unit per 19 grams CHO consumed * Continue goal range of Low 120 mg/dL - High 160 mg/dL * Please note that the plan above was derived based on current level of insulin resistance and hospital stress. These recommendations are appropriate for inpatient admission only. Plan of care upon discharge will need to be reassessed to avoid potential outpatient hypo/hyperglycemia. Thank you.
[2016-09-06] MEDS ORDERED: DOBUTamine HCL 12.5 MG/ML 20 ML VIAL ONE (13:41)
[2016-09-06] MEDS ORDERED: METOPROLOL TARTRATE 1 MG/ML VIAL ONE (13:41)
[2016-09-06] MEDS ORDERED: ATROPINE SULFATE 0.1 MG/ML 5ML SYR ONE (13:41)
[2016-09-06] MEDS ORDERED: PERFLUTREN LIPID MICROSPHERE (DEFINITY) IV ONE (14:32)
[2016-09-06 15:15] VITALS: BP 104/66; PULSE 50; TEMP 36.6; O2SAT 93
[2016-09-06] MEDS ORDERED: SUCR1TAB29 PO (15:26)
--- NOTE | 2016-09-06 15:27 | Discharge Instructions ---
Discharge Instructions Date of Service Sep 06, 2016. Admission Reason for Admission: Chest Pain Discharge Discharge Diagnosis / Problem: chest pain, epigastric pain Discharge Goals Goal(s): Decrease discomfort, Improve function Activity Recommendations Activity Limitations: resume your previous activity . Instructions / Follow-Up Instructions / Follow-Up FOLLOWUP WITH FAMILY DOCTOR IN ONE WEEK NO IBUPROFEN OR MOTRIN OR ALEVE OR ANY NSAID MEDICATIONS THEY CAN CAUSE GASTRIC ULCERS, KIDNEY FAILURE ON SKILLED NURSING USE. CAN USE TYLENOL 500MG UP TO THREE TIMES DAILY NEEDED ONLY. Current Hospital Diet Patient's current hospital diet: AHA Diet (Heart Healthy), Diabetes Type 2 Diet Discharge Diet Recommended Diet: AHA Diet (Heart Healthy) Pending Studies Studies pending at discharge: no Laboratory Results Hemoglobin A1c Test 09/06/16 04:00 Range/Units Estimated Average Glucose 169 mg/dl Hemoglobin A1c 7.5 H 4.5-5.6 % Lipid Panel Test 09/06/16 04:00 Range/Units Triglycerides Level 192 H 0-150 mg/dl Cholesterol Level 145 0-200 mg/dl HDL Cholesterol 41 mg/dl Cholesterol/HDL Ratio 3.5 LDL Cholesterol, Calculated 66 mg/dl Medical Emergencies . Who to Call and When: Medical Emergencies: If at any time you feel your situation is an emergency, please call 911 immediately. . Non-Emergent Contact Non-Emergency issues call your: Primary Care Provider . . "Provider Documentation" section prepared by Albert Montague. . VTE Core Measure Inpt VTE Proph given/why not?: Unfractionated heparin SQ (refused)
--- NOTE | 2016-09-06 15:55 | DOBUTAMINE ECHO ---
*NOTICE TO RECEIVING LIBERTARIAN AGENCY This information is strictly Confidential and protected under [place] law. [place] law prohibits you from making any further disclosure of this information unless further disclosure is expressly permitted by the written consent of the person to whom it pertains or is authorized by law. A general authorization for the release of medical or other information is not sufficient for this purpose. Hospital accepts no responsibility if the information is made available to any other person, INCLUDING THE PATIENT. Interpretation Summary * Name: MARCE DICKERSON Study Date: 09/06/2016 01:31 PM BP: 126/56 mmHg * Patient Location: [facility] HR: 48 * : 1940 (M/d/yyyy) Gender: Female Height: 60 in * Age: 76 yrs Ethnicity: [place] Weight: 162 lb * Referring Physician: RONALDO * Performed By: Liana Truong RDCS * * Reason For Study: CHEST PAIN * BSA: 1.7 m2 * STRESS STUDY: Normal pharmacologic stress echocardiogram. No echocardiographic or ECG evidence of myocardial ischemia having achieved heart rate adequate for diagnostic purposes. Procedure Details * DOBUTAMINE ECHO, CPT#86647 * A contrast injection of Definity was performed to improve assessment of LV function. * Contrast was injected into an intravenous site in the left arm. * One vial of Definity ultrasound contrast was diluted in normal saline to a total volume of 10 ml. A total of '5' ml of solution was administered during imaging. * Lot # [id number] of Definity utilized for procedure. * Expiration date JUN 30. * The attending nurse who injected the contrast agent was JOSELITO MOREAU RN. Stress Parameters * Baseline ECG was essentially normal. No symptoms were noted. * Stress ECG: No ST changes. No arrhythmias. * The stress ECG response was normal * The stress portion of this study was personally supervised by the undersigned interpreting physician. * Rest heart rate was '48' BPM. * Rest blood pressure was '126/56' * Maximum heart rate achieved was 129 bpm. * Maximum heart rate was 88 % of maximum age-predicted heart rate. * Maximum blood pressure was '128/51' * Maximum Dobutamine infusion rate was '50' mcg/kg/min. * Dobutamine infusion was terminated due to achieving target heart rate * A total of 2.5 mg of IV Metoprolol was administered to reverse Dobutamine-induced tachycardia.
[2016-09-06 15:58] VITALS: BP 104/66; PULSE 50; TEMP 36.6; O2SAT 93
--- NOTE | 2016-09-06 16:27 | Progress Note ---
Internal Med Progress Note Date of Service: Sep 06, 2016. Provider Documentation: SUBJECTIVE: has mild epigastric discomfort no chest pain or sob afebrile s/p stress test ok to go home OBJECTIVE: Vital Signs-as noted below Exam: General-Alert and oriented ENT-hard of hearing Neck-no neck masses Lungs-cta b/l no wheezing or crackles Heart-s1 and s2 heard regular rate and rhythm no murmurs Abdomen-soft bowel sounds present non tender no distension Extremities-no edema no erythema Neuro-Alert and oriented moves extremities Lab data as noted below. ASSESSMENT & PLAN: Chest Pain: R/O ACS Risk factors: H/O HTN, HLP, DM II, positive family history Last cardiac cath in 2013:no obstructive CAD serial ce and ekg and stress test unremarkable seen by cardiology discharged to f/u with pcp DM II: hba1c 7.5 d/c on home meds f/u with pcp Hypothyroidism: Continue levothyroxine unremarkable TSH Gout: Continue allopurinol GERD: Continue PPI added sucralfate has patient has some epigastric discomfort f/u with pcp HTN: Stable Continue home meds CKD III: Cr levels stable Discharged home Vital Signs: Date Time Temp Pulse Resp B/P Pulse Ox O2 Delivery O2 Flow Rate FiO2 09/06/16 15:58 36.6 50 16 93 Room Air 09/06/16 15:15 36.6 50 16 104/66 93 Room Air 09/06/16 12:00 Room Air 09/06/16 11:34 36.6 53 16 118/69 92 Room Air 09/06/16 08:00 Room Air 09/06/16 07:13 36.8 51 16 114/66 94 Room Air 09/06/16 04:31 36.8 51 16 100/61 91 Room Air 09/06/16 04:00 Room Air 09/06/16 00:00 Room Air 09/05/16 22:40 36.9 53 18 145/68 98 Room Air 09/05/16 22:02 55 18 145/77 97 09/05/16 21:47 51 18 94 09/05/16 21:31 133/77 09/05/16 21:17 51 20 97 09/05/16 21:05 52 09/05/16 21:01 97/37 09/05/16 19:53 95 Room Air 09/05/16 19:53 36.9 53 16 111/63 95 Room Air 09/05/16 19:39 36.9 53 16 111/63 96 Room Air 09/05/16 19:39 Room Air 09/05/16 19:39 95 Room Air Lab Results: Results Past 24 Hours Test 09/05/16 18:55 09/05/16 20:14 09/05/16 20:43 09/05/16 23:29 Range/Units White Blood Count 6.33 4.8-10.8 K/uL Red Blood Count 4.15 4.2-5.4 M/uL Hemoglobin 12.4 12.0-16.0 g/dL Hematocrit 37.7 37-47 % Mean Corpuscular Volume 90.8 80-100 fL Mean Corpuscular Hemoglobin 29.9 25-34 pg Mean Corpuscular Hemoglobin Concent 32.9 32-36 g/dl RDW Standard Deviation 48.0 36.4-46.3 fL RDW Coefficient of Variation 14.4 11.5-14.5 % Platelet Count 152 130-400 K/uL Mean Platelet Volume 11.0 7.4-10.4 fL Sodium Level 141 136-145 mmol/L Potassium Level 3.9 3.5-5.1 mmol/L Chloride Level 108 98-107 mmol/L Carbon Dioxide Level 25 21-32 mmol/L Anion Gap 8.0 3-11 mmol/L Blood Urea Nitrogen 15 7-18 mg/dl Creatinine 1.10 0.60-1.20 mg/dl Est Creatinine Clear Calc Drug Dose 41.8 ml/min Estimated GFR () 56.9 Estimated GFR (Non- 49.1 BUN/Creatinine Ratio 13.7 10-20 Random Glucose 135 70-99 mg/dl Calcium Level 9.0 8.5-10.1 mg/dl Total Bilirubin 0.7 0.2-1 mg/dl Aspartate Amino Transf (AST/SGOT) 16 15-37 U/L Alanine Aminotransferase (ALT/SGPT) 18 12-78 U/L Alkaline Phosphatase 79 45-117 U/L Total Creatine Kinase 113 26-192 U/L Creatine Kinase MB 1.2 1.0 0.5-3.6 ng/ml Creatine Kinase MB Ratio 1.1 0-3.0 Total Protein 7.4 6.4-8.2 gm/dl Albumin 3.5 3.4-5.0 gm/dl Globulin 3.9 2.5-4.0 gm/dl Albumin/Globulin Ratio 0.9 0.9-2 Bedside Troponin I 0.070 0-0.045 ng/ml Prothrombin Time 11.2 9.0-12.0 SECONDS Prothromb Time International Ratio 1.0 0.9-1.1 Activated Partial Thromboplast Time 24.3 21.0-31.0 SECONDS Partial Thromboplastin Ratio 0.9 Troponin I < 0.015 0-0.045 ng/ml Test 09/06/16 04:00 09/06/16 04:44 09/06/16 07:30 09/06/16 08:00 Range/Units White Blood Count 6.01 4.8-10.8 K/uL Red Blood Count 3.64 4.2-5.4 M/uL Hemoglobin 10.8 12.0-16.0 g/dL Hematocrit 33.5 37-47 % Mean Corpuscular Volume 92.0 80-100 fL Mean Corpuscular Hemoglobin 29.7 25-34 pg Mean Corpuscular Hemoglobin Concent 32.2 32-36 g/dl Platelet Count 142 130-400 K/uL Mean Platelet Volume 10.9 7.4-10.4 fL Neutrophils (%) (Auto) 51.4 % Lymphocytes (%) (Auto) 38.4 % Monocytes (%) (Auto) 7.7 % Eosinophils (%) (Auto) 2.0 % Basophils (%) (Auto) 0.5 % Neutrophils # (Auto) 3.09 1.4-6.5 K/uL Lymphocytes # (Auto) 2.31 1.2-3.4 K/uL Monocytes # (Auto) 0.46 0.11-0.59 K/uL Eosinophils # (Auto) 0.12 0-0.5 K/uL Basophils # (Auto) 0.03 0-0.2 K/uL RDW Standard Deviation 49.2 36.4-46.3 fL RDW Coefficient of Variation 14.4 11.5-14.5 % Immature Granulocyte % (Auto) 0.0 % Immature Granulocyte # (Auto) 0.00 0.00-0.02 K/uL Nucleated RBC Absolute Count (auto) 0.00 0-0 K/uL Nucleated Red Blood Cells % 0.0 % Sodium Level 143 136-145 mmol/L Potassium Level 3.9 3.5-5.1 mmol/L Chloride Level 110 98-107 mmol/L Carbon Dioxide Level 29 21-32 mmol/L Anion Gap 4.0 3-11 mmol/L Blood Urea Nitrogen 14 7-18 mg/dl Creatinine 1.10 0.60-1.20 mg/dl Est Creatinine Clear Calc Drug Dose 38.8 ml/min Estimated GFR () 56.9 Estimated GFR (Non- 49.1 BUN/Creatinine Ratio 12.6 10-20 Random Glucose 121 70-99 mg/dl Estimated Average Glucose 169 mg/dl Hemoglobin A1c 7.5 4.5-5.6 % Calcium Level 8.2 8.5-10.1 mg/dl Magnesium Level 2.0 1.8-2.4 mg/dl Creatine Kinase MB 1.1 0.5-3.6 ng/ml Troponin I < 0.015 0-0.045 ng/ml Triglycerides Level 192 0-150 mg/dl Cholesterol Level 145 0-200 mg/dl HDL Cholesterol 41 mg/dl LDL Cholesterol, Calculated 66 mg/dl VLDL Cholesterol, Calculated 38 mg/dl Cholesterol/HDL Ratio 3.5 Thyroid Stimulating Hormone (TSH) 0.792 0.300-4.500 uIu/ml Creatine Kinase MB Ratio 0-3.0 Bedside Glucose 105 70-90 mg/dl Test 09/06/16 08:33 09/06/16 11:48 Range/Units Creatine Kinase MB 1.4 0.5-3.6 ng/ml Troponin I < 0.015 0-0.045 ng/ml Bedside Glucose 114 70-90 mg/dl
--- NOTE | 2016-09-06 17:55 | Discharge Summary ---
Discharge Summary Date of Service Sep 06, 2016. Discharge Summary Admission Date: Sep 05, 2016 at 21:24 Discharge Date: Sep 06, 2016 Discharge Disposition: Home Principal Diagnosis: CHEST PAIN Secondary Diagnoses/Problems: (1) Arthritis Status: Chronic (2) Borderline glaucoma Status: Chronic (3) Diabetes Status: Chronic (4) GERD (gastroesophageal reflux disease) Status: Chronic (5) Hypercholesterolemia Status: Chronic (6) Hypertension Status: Chronic (7) Hypothyroidism Status: Chronic (8) Irregular heartbeat Status: Chronic Procedures: CXR:' No significant change compared to the prior study. No acute process. STRESS ECHO: Normal pharmacologic stress echocardiogram. No echocardiographic or ECG evidence of myocardial ischemia having achieved heart rate adequate for diagnostic purposes. Consultations: CARDIOLOGY Medication Reconciliation New Medications: Sucralfate (Carafate) 1 Gm Tab 1 TAB PO QID for 10 Days, #40 TAB 1 Refill Continued Medications: Allopurinol (Allopurinol) 100 Mg Tab 100 MG PO DAILY Atorvastatin (Lipitor) 40 Mg Tab 40 MG PO HS, TAB Cetirizine (Zyrtec) 10 Mg Tab 10 MG PO HS, TAB Donepezil Hydrochloride (Aricept) 10 Mg Tab 10 MG PO HS, TAB Levothyroxine Sodium (Synthroid) 75 Mcg Tab 75 MCG PO QAM, TAB Lisinopril (Lisinopril) 2.5 Mg Tab 2.5 MG PO 3XWK MON, WED, FRI Memantine (Namenda) 5 Mg Tab 5 MG PO BID, TAB Multivitamin (Multivitamin) Unknown Strength Tab 1 TAB PO DAILY, TAB Nitroglycerin (Nitrostat) 0.4 Mg Sub 0.4 MG UT PRN, BTL Omeprazole (Prilosec) 20 Mg Capcr 20 MG PO BID, CAP Sertraline (Zoloft) 25 Mg Tab 25 MG PO QAM, TAB Timolol Maleate (Ophth) (Timoptic 0.25% Oph) 0.25 % Julee 1 DROP OPB QAM, BTL Travoprost (Travatan Z) 0.004 % Bhavesh 1 DROPS OPB HS, BTL Discontinued Medications: Ibuprofen Tab (Motrin) 600 Mg Tab 600 MG PO Q6H PRN for Pain, #20 TAB Admission Information HPI (per Admitting provider): Patient is a 76 yr old female with PMH of Alzheimer's dementia, DM II, CKD III, GERD, GOUT, Hypothyroidism, HTN, HLP presents to ED for evaluation of chest pain. Patient has dementia and is poor historian. Most of the history is obtained from patients family. Patient reports chest pain started at around 7Am this morning and she woke up with chest pain, retrosternal in location, constant , 7/10 intensity, radiates to back and left arm. Associated with nausea, dizziness, diaphoresis, low grade fever. Denies any history of SOB, palpitations , vomiting, abd pain, change in bowel/bladder habits, cough , wheezing, recent infection. Also denies similar chest pain in the past. En route to ED, patient received Nitroglycerin, Fentanyl, and Aspirin which slightly relieved her chest pain. Patient had cardiac cath in 2013 which showed no obstructive CAD. EKG shows sinus bradycardia and first set of Troponin mildly elevated at 0.07. Could not obtain any other relevant history. Physical Exam (per Admitting): General Appearance: WD/WN, no apparent distress Head: normocephalic, atraumatic Eyes: normal inspection, PERRL, EOMI, sclerae normal ENT: normal ENT inspection, hearing grossly normal Neck: supple, trachea midline Respiratory/Chest: chest non-tender, lungs clear, normal breath sounds, no respiratory distress, no accessory muscle use Cardiovascular: regular rate, rhythm, no murmur, + bradycardia, + pertinent finding (Trace pedal edema) Abdomen/GI: normal bowel sounds, non tender, soft Back: normal inspection Extremities/Musculoskelatal: normal inspection, no calf tenderness, + pertinent finding (Trace pedal edema) Neurologic/Psych: players assistant II-XII nml as tested, no motor/sensory deficits, alert , normal mood/affect, oriented x 3, + pertinent finding (Dementia) Hospital Course Chest Pain: R/O ACS Risk factors: H/O HTN, HLP, DM II, positive family history Last cardiac cath in 2013:no obstructive CAD serial ce and ekg and stress test unremarkable seen by cardiology discharged to f/u with pcp DM II: hba1c 7.5 d/c on home meds f/u with pcp Hypothyroidism: Continue levothyroxine unremarkable TSH Gout: Continue allopurinol GERD: Continue PPI added sucralfate has patient has some epigastric discomfort f/u with pcp HTN: Stable Continue home meds CKD III: Cr levels stable Discharged home Total time spent on discharge = 35MINUTES This includes examination of the patient, discharge planning, medication reconciliation, and communication with other providers. Discharge Instructions Discharge Instructions Date of Service Sep 06, 2016. Admission Reason for Admission: Chest Pain Discharge Discharge Diagnosis / Problem: chest pain, epigastric pain Discharge Goals Goal(s): Decrease discomfort, Improve function Activity Recommendations Activity Limitations: resume your previous activity . Instructions / Follow-Up Instructions / Follow-Up FOLLOWUP WITH FAMILY DOCTOR IN ONE WEEK NO IBUPROFEN OR MOTRIN OR ALEVE OR ANY NSAID MEDICATIONS THEY CAN CAUSE GASTRIC ULCERS, KIDNEY FAILURE ON SENIOR CARE USE. CAN USE TYLENOL 500MG UP TO THREE TIMES DAILY NEEDED ONLY. Current Hospital Diet Patient's current hospital diet: AHA Diet (Heart Healthy), Diabetes Type 2 Diet Discharge Diet Recommended Diet: AHA Diet (Heart Healthy) Pending Studies Studies pending at discharge: no Laboratory Results Hemoglobin A1c Test 09/06/16 04:00 Range/Units Estimated Average Glucose 169 mg/dl Hemoglobin A1c 7.5 H 4.5-5.6 % Lipid Panel Test 09/06/16 04:00 Range/Units Triglycerides Level 192 H 0-150 mg/dl Cholesterol Level 145 0-200 mg/dl HDL Cholesterol 41 mg/dl Cholesterol/HDL Ratio 3.5 LDL Cholesterol, Calculated 66 mg/dl Medical Emergencies . Who to Call and When: Medical Emergencies: If at any time you feel your situation is an emergency, please call 911 immediately. . Non-Emergent Contact Non-Emergency issues call your: Primary Care Provider
[2016-09-06] MEDS ORDERED: ATORVASTATIN 40 MG TAB PO SCH (21:00)
[2016-09-06] MEDS ORDERED: DONEPEZIL HCL 10 MG TAB PO SCH (21:00)
[2016-09-06] MEDS ORDERED: TRAVOPROST Z 0.004% OPH SOLN 2.5 ML BTL OPB SCH (21:00)
[2016-09-06] MEDS ORDERED: CETIRIZINE HCL 10 MG TAB PO SCH (21:00)
== END 2016-09-06 17:00 | disposition home or self-care (01) ==
LOC: ENRESERVDT → ENRESERVTM → EDBD 19:17 → C.EDC 19:18 → C.MED 21:24
PROVIDERS: ADMIT Internal Medicine; ATTEND Internal Medicine
DX: R07.9 Chest pain, unspecified (principal); E11.22 Type 2 diabetes mellitus with diabetic chronic kidney disease; I12.9 Hypertensive chronic kidney disease with stage 1 through stage 4 chronic kidney disease, or unspecified chronic kidney disease; N18.3 Chronic kidney disease, stage 3 (moderate); K21.9 Gastro-esophageal reflux disease without esophagitis; E78.00 Pure hypercholesterolemia, unspecified; E03.9 Hypothyroidism, unspecified; M10.9 Gout, unspecified; G30.9 Alzheimer's disease, unspecified; F02.80 Dementia in other diseases classified elsewhere, unspecified severity, without behavioral disturbance, psychotic disturbance, mood disturbance, and anxiety; Z98.890 Other specified postprocedural states; Z79.899 Other long term (current) drug therapy; Z90.49 Acquired absence of other specified parts of digestive tract; Z90.710 Acquired absence of both cervix and uterus; Z88.5 Allergy status to narcotic agent; Z82.49 Family history of ischemic heart disease and other diseases of the circulatory system

== ENCOUNTER → 2016-10-03 | Outpatient (CLI) | payer OTHER ==
[~2016-10-03] MED LIST changes: +CETI10TA84 PO; -IBUP-1427 PO; -METF-841 PO; -NMN10 PO; +NMN5 PO; +SUCR1TAB29 PO; +TRAV0.00 OPB
--- NOTE | 2016-10-03 09:04 | DIAGNOSTIC IMAGING REPORT ---
ABDOMINAL ULTRASOUND COMPLETE HISTORY: Pain. Nausea. LLQ PAIN, RLQ PAIN, DIARRHEA. COMPARISON: None. FINDINGS: Pancreas: The pancreas demonstrates a normal echotexture. Liver: Fatty infiltration Gallbladder: Prior removal CBD: 8 mm possibly postoperative Kidneys: No hydronephrosis. Spleen: Normal in size. Aorta: Normal in caliber. IVC: Patent. IMPRESSION: Fatty infiltration of liver. Otherwise negative study post cholecystectomy Electronically signed by: Fantasma Ramon M.D. 10/03/2016 9:03 AM Dictated Date/Time: 10/03/2016 8:51 AM
== END | disposition home or self-care (01) ==
LOC: C.ULTR 08:02
PROVIDERS: ATTEND Internal Medicine
DX: R10.32 Left lower quadrant pain (principal); R10.31 Right lower quadrant pain; R19.7 Diarrhea, unspecified; K76.0 Fatty (change of) liver, not elsewhere classified